=== PATIENT | male | born 1945 | race Caucasian/White ===

== ENCOUNTER 2020-03-26 12:05 | Emergency (ER) | payer MEDICARE, OTHER ==
[2020-03-26 12:18] VITALS: RESP 18
--- NOTE | 2020-03-26 12:46 | ED ---
General Adult HPI - General Chief complaint: Recheck/Abnormal Lab/Rx Stated complaint: Abn Labs Time Seen by Provider: 03/26/20 12:15 Source: patient, EMS Mode of arrival: EMS Limitations: no limitations - History of Present Illness Initial comments: Dictation was produced using [employer] dictation software. please excuse any grammatical, word or spelling errors. This patient was cared for during a federal and state declared state of emergency secondary to Covid 19 Chief Complaint: 74-year-old gentleman transferred from [facility] for abnormal outpatient labs History of Present Illness: 74-year-old male who has past medical history of acute kidney disease, myocardial infarction dyslipidemia. He is transferred from [facility] for abnormal labs. Patient had elevated renal markers. Patient had recent ureteral stent placement. He has a Barrera catheter in place. Patient states he feels well. He knows that he is here because his laboratory markers are worse than usual. Patient states he has a stent. He does not know which side the stent is on. He does not know why it's place. Allegedly the stent was placed at [facility] in [place], by a urologist. The ROS documented in this emergency department record has been reviewed and confirmed by me. Those systems with pertinent positive or negative responses have been documented in the HPI. All other systems are other negative and/or noncontributory. PHYSICAL EXAM: General Impression: Alert and oriented x3, not in acute distress HEENT: Normocephalic atraumatic, extra-ocular movements intact, pupils equal and reactive to light bilaterally, mucous membranes moist. Cardiovascular: Heart regular rate and rhythm Chest: Able to complete full sentences, no retractions, no tachypnea Abdomen: abdomen soft, non-tender, non-distended, no organomegaly Musculoskeletal: Pulses present and equal in all extremities, no peripheral edema Motor: no focal deficits noted : No groin changes, folic catheter in place, clear urine and Barrera catheter re servoir and tubing Neurological: CN II-XII grossly intact, no focal motor or sensory deficits noted Skin: Intact with no visualized rashes Psych: Normal affect and mood ED course: 74-year-old male presents with abnormal outpatient labs. Patient has been having worsening renal function. Chest her documentation shows that patient's creatinine is 3 vital signs upon arrival shows temperature 90.2, rest of vital signs within acceptable limits. More history was obtained from Dr. Long who is the physician at the rehab facility. He states that patient has complex neurologic history. He has had m ultiple workups including test done by urology, nephrology in interventional radiology. He does not have the exact details of his workup and he does not know which hospital patient came from. He is concerned that patient's renal markers are increasing. He is concerned that he is having worsening obstructive uropathy.Bladder scan showed 57 mL of urine. Laboratory evaluation obtained. CBC is unremarkable. Patient does have a hemoglobin of 8.8. This seems to be his baseline. reatining is 3.58. Potassium 5.4 likely secondary to acute kidney injury. There is old EKG for comparison however there is an QRS with left bundle branch block. Unclear whether this is new or old. She continues to be asymptomatic. Patient's hyperkalemia is chronic. Patient given intravenous fluids. Patient is greater than 182 white blood cells. Patient given 1 dose of ceftriaxone. Patient be transferred to [facility] case was discussed with Dr Sotomayor was willing to accept patients care for urinary ER transfer. EKG interpretation: Ventricular rate 63, normal sinus rhythm, WA interval 140, QRS 152, QTC 493. No WA prolongation, no QTC prolongation, no ST or T-wave changes noted. No old EKG for comparison - Related Data Home Medications Medication Instructions Recorded Confirmed Atorvastatin [Lipitor] 40 mg PO HS 03/26/20 03/26/20 Cholecalciferol [Vitamin D3 (25 1,000 unit PO DAILY 03/26/20 03/26/20 Mcg = 1000 Iu)] Docusate [Colace] 100 mg PO DAILY PRN 03/26/20 03/26/20 Escitalopram [Lexapro] 10 mg PO DAILY 03/26/20 03/26/20 Hydrocortisone [Cortef] 5 mg PO HS 03/26/20 03/26/20 Hydrocortisone [Cortef] 10 mg PO DAILY 03/26/20 03/26/20 Magnesium Oxide [Mag-Ox] 400 mg PO DAILY 03/26/20 03/26/20 Magnesium Sulfate [Epsom Salt] 1 dose TOPICAL HS 03/26/20 03/26/20 Metoprolol Succinate (ER) [Toprol 25 mg PO DAILY 08/13/20 08/13/20 Xl] Midodrine HCl 5 mg PO TID@0800,1130,1630 03/26/20 03/26/20 Nitroglycerin Sl Tabs [Nitrostat] 0.4 mg SUBLINGUAL Q5M PRN 03/26/20 03/26/20 Pantoprazole [Protonix] 40 mg PO DAILY@0600 03/26/20 03/26/20 Polyethylene Glycol 3350 [Miralax] 17 gm PO DAILY PRN 03/26/20 03/26/20 Propylene Glycol/Peg 400/Pf 2 drops BOTH EYES TID PRN 03/26/20 03/26/20 [Systane 0.3-0.4% Eye Drops] Tamsulosin HCl [Flomax] 0.4 mg PO DAILY 03/26/20 03/26/20 Allergies Allergy/AdvReac Type Severity Reaction Status Date / Time No Known Allergies Allergy Verified 03/26/20 12:19 Review of Systems ROS Statement: Those systems with pertinent positive or pertinent negative responses have been documented in the HPI. ROS Other: All systems not noted in ROS Statement are negative. Past Medical History Past Medical History: GERD/Reflux, Hyperlipidemia, Myocardial Infarction ([place]), Renal Disease Additional Past Medical History / Comment(s): anemia,hydronephrosis,carbon monoxide poisioning Past Surgical History: Heart Catheterization With Stent, Orthopedic Surgery Additional Past Surgical History / Comment(s): stent to left kidney Past Psychological History: Anxiety, Depression Smoking Status: Former smoker Past Alcohol Use History: None Reported Past Drug Use History: None Reported General Exam Limitations: no limitations Course Vital Signs 03/26/20 12:07 Temperature 99.2 F Pulse Rate 65 Respiratory 18 Rate Blood Pressure 119/75 O2 Sat by Pulse 98 Oximetry Medical Decision Making - Lab Data Result diagrams: 03/26/20 12:33 03/26/20 12:33 Lab Results 03/26/20 03/26/20 03/26/20 Range/Units 12:33 12:33 12:33 WBC 6.2 (3.8-10.6) k/uL RBC 2.95 L (4.30-5.90) m/uL Hgb 8.8 L (13.0-17.5) gm/dL Hct 28.2 L (39.0-53.0) % MCV 95.6 (80.0-100.0) fL MCH 29.8 (25.0-35.0) pg MCHC 31.2 (31.0-37.0) g/dL RDW 15.4 (11.5-15.5) % Plt Count 339 (150-450) k/uL Neutrophils % 75 % Lymphocytes % 12 % Monocytes % 5 % Eosinophils % 4 % Basophils % 0 % Neutrophils # 4.7 (1.3-7.7) k/uL Lymphocytes # 0.7 L (1.0-4.8) k/uL Monocytes # 0.3 (0-1.0) k/uL Eosinophils # 0.3 (0-0.7) k/uL Basophils # 0.0 (0-0.2) k/uL Hypochromasia Slight Sodium 136 L (137-145) mmol/L Potassium 5.4 H (3.5-5.1) mmol/L Chloride 108 H (98-107) mmol/L Carbon Dioxide 22 (22-30) mmol/L Anion Gap 6 mmol/L BUN 74 H (9-20) mg/dL Creatinine 3.58 H (0.66-1.25) mg/dL Est GFR (CKD-EPI)AfAm 18 (>60 ml/min/1.73 sqM) Est GFR (CKD-EPI)NonAf 16 (>60 ml/min/1.73 sqM) Glucose 115 H (74-99) mg/dL Calcium 8.3 L (8.4-10.2) mg/dL Urine Color Light Yellow Urine Appearance Cloudy (Clear) Urine pH 6.5 (5.0-8.0) Ur Specific [place] 1.014 (1.001-1.035) Urine Protein 1+ H (Negative) Urine Glucose (UA) Negative (Negative) Urine Ketones Negative (Negative) Urine Blood Moderate H (Negative) Urine Nitrite Negative (Negative) Urine Bilirubin Negative (Negative) Urine Urobilinogen <2.0 (<2.0) mg/dL Ur Leukocyte Esterase Large H (Negative) Urine RBC 72 H (0-5) /hpf Urine WBC >182 H (0-5) /hpf Urine WBC Clumps Many H (None) /hpf Urine Bacteria Occasional H (None) /hpf Disposition Clinical Impression: HERSON (acute kidney injury) Disposition: OTHER INSTITUTION NOT DEFINED Condition: Fair Referrals: Orestes Long MD [Primary Care Provider] - 1-2 days Time of Disposition: 13:26 - Out of Hospital Transfer - Req. Specs Out of Hospital Transfer - Requested Specifics: Other Emergency Center ([facility])
[2020-03-26 12:57] LABS: Basophils % (A) 0 %; Eosinophils # (A) 0.3 k/uL (0-0.7); Eosinophils % (A) 4 %; HCT 28.2 % (39.0-53.0); HGB 8.8 gm/dL (13.0-17.5); Hypochromasia Slight; Lymphocytes # (A) 0.7 k/uL (1.0-4.8); Lymphocytes % (A) 12 %; MCH 29.8 pg (25.0-35.0); MCHC 31.2 g/dL (31.0-37.0); MCV 95.6 fL (80.0-100.0); Mean Platelet Volume 8.2; Monocytes # (A) 0.3 k/uL (0-1.0); Monocytes % (A) 5 %; Neutrophils # (A) 4.7 k/uL (1.3-7.7); Neutrophils % (A) 75 %; Platelet Count 339 k/uL (150-450); RBC 2.95 m/uL (4.30-5.90); RDW 15.4 % (11.5-15.5); WBC 6.2 k/uL (3.8-10.6)
[2020-03-26 13:07] LABS: Calcium 8.3 mg/dL (8.4-10.2); Potassium 5.4 mmol/L (3.5-5.1)
[2020-03-26] MEDS ORDERED: SODIUM CHLORIDE 0.9% 1,000 ML IV STA (13:07)
[2020-03-26 13:19] LABS: Appearance,Urine Cloudy (Clear); Bacteria,Urine Occasional /hpf; Bilirubin,Urine Negative (Negative); Blood,Urine Moderate (Negative); Color,Urine Light Yellow; Glucose,Urine (UA) Negative (Negative); Ketones,Urine Negative (Negative); Leukocyte Esterase,Urine Large (Negative); Nitrite,Urine Negative (Negative); PH, Urine 6.5 (5.0-8.0); Protein,Urine 1+ (Negative); RBC,Urine 72 /hpf (0-5); Specific Gravity,Urine 1.014 (1.001-1.035); Urobilinogen,Urine <2.0 mg/dL (<2.0); WBC,Urine >182 /hpf (0-5)
[2020-03-26] MEDS ORDERED: cefTRIAXone IN SWFI 1,000 MG/10 ML SYRINGE IVP STA (13:25)
[2020-03-26 14:18] VITALS: BP 115/72; PULSE 68; TEMP 98.8
== END 2020-03-26 14:18 | disposition other institution (70) ==
LOC: EC 12:05
DX: N17.9 Acute kidney failure, unspecified (principal); I44.7 Left bundle-branch block, unspecified; E87.5 Hyperkalemia; I25.2 Old myocardial infarction; F41.9 Anxiety disorder, unspecified; F32.9 Major depressive disorder, single episode, unspecified; K21.9 Gastro-esophageal reflux disease without esophagitis; E78.5 Hyperlipidemia, unspecified; Z79.899 Other long term (current) drug therapy; Z87.891 Personal history of nicotine dependence; Z95.5 Presence of coronary angioplasty implant and graft
CPT/HCPCS: 51798; 36415; 93005; 80048; 85025; 81001; 99285; 96374; 96361; J0696

== ENCOUNTER 2020-05-26 02:58 | Inpatient (IN) | payer MEDICARE, OTHER ==
[2020-05-26] MEDS ORDERED: ACETAMINOPHEN TAB 500 MG TAB PO STA (03:06)
--- NOTE | 2020-05-26 03:07 | ED ---
Fever HPI - General Stated Complaint: fever Time Seen by Provider: 05/26/20 03:01 Source: RN notes reviewed, old records reviewed Mode of arrival: EMS Limitations: no limitations - History of Present Illness Initial Comments: This is a 75-year-old male DF for evaluation of fever with known history of urinary tract infection, patient sent DF for evaluation of persistent fever, p atient is weak occasionally lightheaded and dizzy. History of [place] and kidney disease MD Complaint: fever, malaise -: days(s) Temperature Source: subjective Context: recent antibiotic use Associated Symptoms: chills, myalgias, nausea Treatments Prior to Arrival: none - Related Data Home Medications Medication Instructions Recorded Confirmed Atorvastatin [Lipitor] 40 mg PO HS 03/26/20 03/26/20 Cholecalciferol [Vitamin D3 (25 1,000 unit PO DAILY 03/26/20 03/26/20 Mcg = 1000 Iu)] Docusate [Colace] 100 mg PO DAILY PRN 03/26/20 03/26/20 Escitalopram [Lexapro] 10 mg PO DAILY 03/26/20 03/26/20 Hydrocortisone [Cortef] 5 mg PO HS 03/26/20 03/26/20 Hydrocortisone [Cortef] 10 mg PO DAILY 03/26/20 03/26/20 Magnesium Oxide [Mag-Ox] 400 mg PO DAILY 03/26/20 03/26/20 Magnesium Sulfate [Epsom Salt] 1 dose TOPICAL HS 03/26/20 03/26/20 Metoprolol Succinate (ER) [Toprol 25 mg PO DAILY 03/26/20 03/26/20 Xl] Midodrine HCl 5 mg PO TID@0800,1130,1630 03/26/20 03/26/20 Nitroglycerin Sl Tabs [Nitrostat] 0.4 mg SUBLINGUAL Q5M PRN 03/26/20 03/26/20 Pantoprazole [Protonix] 40 mg PO DAILY@0600 03/26/20 03/26/20 Polyethylene Glycol 3350 [Miralax] 17 gm PO DAILY PRN 03/26/20 03/26/20 Propylene Glycol/Peg 400/Pf 2 drops BOTH EYES TID PRN 03/26/20 03/26/20 [Systane 0.3-0.4% Eye Drops] Tamsulosin HCl [Flomax] 0.4 mg PO DAILY 03/26/20 03/26/20 Allergies Allergy/AdvReac Type Severity Reaction Status Date / Time No Known Allergies Allergy Verified 03/26/20 12:19 Review of Systems ROS Statement: Those systems with pertinent positive or pertinent negative responses have been documented in the HPI. ROS Other: All systems not noted in ROS Statement are negative. Past Medical History Past Medical History: GERD/Reflux, Hyperlipidemia, Myocardial Infarction ([place]), Renal Disease Additional Past Medical History / Comment(s): anemia,hydronephrosis,carbon monoxide poisioning History of Any Multi-Drug Resistant Organisms: Acinetobacter (MDRO) Date of last positivie culture/infection: 04/25/20 MDRO Source:: URINE Past Surgical History: Heart Catheterization With Stent, Orthopedic Surgery Additional Past Surgical History / Comment(s): stent to left kidney Past Psychological History: Anxiety, Depression Smoking Status: Former smoker Past Alcohol Use History: None Reported Past Drug Use History: None Reported General Exam General appearance: alert, in no apparent distress Head exam: Present: atraumatic, normocephalic, normal inspection Eye exam: Present: normal appearance, PERRL, EOMI. Absent: scleral icterus, conjunctival injection, periorbital swelling ENT exam: Present: normal exam, mucous membranes moist Neck exam: Present: normal inspection. Absent: tenderness, meningismus, lymphadenopathy Respiratory exam: Present: normal lung sounds bilaterally. Absent: respiratory distress, wheezes, rales, rhonchi, stridor Cardiovascular Exam: Present: regular rate, normal rhythm, normal heart sounds. Absent: systolic murmur, diastolic murmur, rubs, gallop, clicks GI/Abdominal exam: Present: soft, normal bowel sounds. Absent: distended, tenderness, guarding, rebound, rigid Extremities exam: Present: normal inspection, full ROM, normal capillary refill. Absent: tenderness, pedal edema, joint swelling, calf tenderness Back exam: Present: normal inspection Neurological exam: Present: alert, oriented X3, CN II-XII intact Psychiatric exam: Present: normal affect, normal mood Skin exam: Present: warm, dry, intact, normal color. Absent: rash Course Vital Signs 05/26/20 05/26/20 02:59 04:00 Temperature 98.7 F 99.4 F Pulse Rate 67 64 Respiratory 16 18 Rate Blood Pressure 115/65 107/61 O2 Sat by Pulse 97 97 Oximetry - Reevaluation(s) Reevaluation #1: 05/26/20 04:19 Medical records reviewed Reevaluation #2: 05/26/20 04:19 Symptomatic improvement here in the ER Reevaluation #3: 05/26/20 04:19 Spoke with patient regarding findings, questions answered - Consultations Consultation #1: EMS to agrees to admit this patient Medical Decision Making - Medical Decision Making 75 male DF for evaluation positive fever of unknown origin, patient be admitted rule out coronavirus rule out cause of sepsis ration does apparently have urinary tract infection as well - Lab Data Result diagrams: 05/26/20 03:21 05/26/20 03:21 Lab Results 05/26/20 05/26/20 05/26/20 Range/Units 03:21 03:21 03:21 WBC 20.8 H (3.8-10.6) k/uL RBC 3.10 L (4.30-5.90) m/uL Hgb 10.1 L (13.0-17.5) gm/dL Hct 32.1 L (39.0-53.0) % MCV 103.4 H (80.0-100.0) fL MCH 32.5 (25.0-35.0) pg MCHC 31.5 (31.0-37.0) g/dL RDW 15.3 (11.5-15.5) % Plt Count 263 (150-450) k/uL Neutrophils % 88 % Lymphocytes % 4 % Monocytes % 6 % Eosinophils % 0 % Basophils % 0 % Neutrophils # 18.3 H (1.3-7.7) k/uL Lymphocytes # 0.8 L (1.0-4.8) k/uL Monocytes # 1.3 H (0-1.0) k/uL Eosinophils # 0.0 (0-0.7) k/uL Basophils # 0.0 (0-0.2) k/uL Macrocytosis Slight PT 10.6 (9.0-12.0) sec INR 1.0 (<1.2) APTT 24.1 (22.0-30.0) sec Sodium 138 (137-145) mmol/L Potassium 4.2 (3.5-5.1) mmol/L Chloride 106 (98-107) mmol/L Carbon Dioxide 23 (22-30) mmol/L Anion Gap 9 mmol/L BUN 75 H (9-20) mg/dL Creatinine 4.02 H (0.66-1.25) mg/dL Est GFR (CKD-EPI)AfAm 16 (>60 ml/min/1.73 sqM) Est GFR (CKD-EPI)NonAf 14 (>60 ml/min/1.73 sqM) Glucose 156 H (74-99) mg/dL Plasma Lactic Acid Stanton (0.7-2.0) mmol/L Calcium 8.7 (8.4-10.2) mg/dL Magnesium 1.5 L (1.6-2.3) mg/dL Total Bilirubin 0.5 (0.2-1.3) mg/dL AST 41 (17-59) U/L ALT 60 H (4-49) U/L Alkaline Phosphatase 76 (38-126) U/L Lactate Dehydrogenase 419 (313-618) U/L C-Reactive Protein 28.4 H (<10.0) mg/L Total Protein 6.0 L (6.3-8.2) g/dL Albumin 3.6 (3.5-5.0) g/dL 05/26/20 Range/Units 03:21 WBC (3.8-10.6) k/uL RBC (4.30-5.90) m/uL Hgb (13.0-17.5) gm/dL Hct (39.0-53.0) % MCV (80.0-100.0) fL MCH (25.0-35.0) pg MCHC (31.0-37.0) g/dL RDW (11.5-15.5) % Plt Count (150-450) k/uL Neutrophils % % Lymphocytes % % Monocytes % % Eosinophils % % Basophils % % Neutrophils # (1.3-7.7) k/uL Lymphocytes # (1.0-4.8) k/uL Monocytes # (0-1.0) k/uL Eosinophils # (0-0.7) k/uL Basophils # (0-0.2) k/uL Macrocytosis PT (9.0-12.0) sec INR (<1.2) APTT (22.0-30.0) sec Sodium (137-145) mmol/L Potassium (3.5-5.1) mmol/L Chloride (98-107) mmol/L Carbon Dioxide (22-30) mmol/L Anion Gap mmol/L BUN (9-20) mg/dL Creatinine (0.66-1.25) mg/dL Est GFR (CKD-EPI)AfAm (>60 ml/min/1.73 sqM) Est GFR (CKD-EPI)NonAf (>60 ml/min/1.73 sqM) Glucose (74-99) mg/dL Plasma Lactic Acid Stanton 1.1 (0.7-2.0) mmol/L Calcium (8.4-10.2) mg/dL Magnesium (1.6-2.3) mg/dL Total Bilirubin (0.2-1.3) mg/dL AST (17-59) U/L ALT (4-49) U/L Alkaline Phosphatase (38-126) U/L Lactate Dehydrogenase (313-618) U/L C-Reactive Protein (<10.0) mg/L Total Protein (6.3-8.2) g/dL Albumin (3.5-5.0) g/dL - EKG Data -: EKG Interpreted by Me (EKG shows sinus rhythm 68 WI 146 QRS 152 QTC 523) Disposition Clinical Impression: Fever, Viral infection, Fever of unknown origin, Sepsis, UTI (urinary tract infection) Disposition: ADMITTED IP TO THIS HOSP Condition: Fair Is patient prescribed a controlled substance at d/c from ED?: No Referrals: Orestes Long MD [Primary Care Provider] - 1-2 days
[2020-05-26 03:29] LABS: Basophils % (A) 0 %; Eosinophils % (A) 0 %; HCT 32.1 % (39.0-53.0); HGB 10.1 gm/dL (13.0-17.5); Lymphocytes # (A) 0.8 k/uL (1.0-4.8); Lymphocytes % (A) 4 %; MCH 32.5 pg (25.0-35.0); MCHC 31.5 g/dL (31.0-37.0); MCV 103.4 fL (80.0-100.0); Macrocytosis Slight; Mean Platelet Volume 8.8; Monocytes # (A) 1.3 k/uL (0-1.0); Monocytes % (A) 6 %; Neutrophils # (A) 18.3 k/uL (1.3-7.7); Neutrophils % (A) 88 %; Platelet Count 263 k/uL (150-450); RDW 15.3 % (11.5-15.5); WBC 20.8 k/uL (3.8-10.6)
[2020-05-26 03:45] LABS: Albumin 3.6 g/dL (3.5-5.0); C Reactive Protein 28.4 mg/L (<10.0); Calcium 8.7 mg/dL (8.4-10.2); Magnesium 1.5 mg/dL (1.6-2.3); Potassium 4.2 mmol/L (3.5-5.1); Total Bilirubin 0.5 mg/dL (0.2-1.3)
[2020-05-26 03:46] LABS: Partial Thromboplastin Time 24.1 sec (22.0-30.0); Prothrombin Time 10.6 sec (9.0-12.0)
--- NOTE | 2020-05-26 04:02 | XR ---
EXAM: XR Chest, 1 View CLINICAL HISTORY: Suspected COVID-19 pneumonia TECHNIQUE: Frontal view of the chest. COMPARISON: No relevant prior studies available. FINDINGS: Lungs: Unremarkable. No acute infiltration, atelectasis or mass. Pleural space: Unremarkable. No pneumothorax or pleural fluid. Heart: Unremarkable. No cardiomegaly. Mediastinum: Unremarkable. Bones/joints: No acute findings. IMPRESSION: No evidence of acute process in the chest by x-ray.
[2020-05-26] MEDS ORDERED: PIPERACILLIN-TAZOBACTAM 3.375 GM in SODIUM CHLORIDE 0.9% 100 ML IVPB STA (04:17)
[2020-05-26] MEDS: SODIUM CHLORIDE 0.9% 500 ML 500 ML IV SCH ×3 (04:38→06:27)
[2020-05-26] MEDS: SODIUM CHLORIDE 0.9% 1,000 ML IV SCH ×3 (05:32→20:40)
[2020-05-26] MEDS ORDERED: ENOXAPARIN 40 MG/0.4 ML SYRINGE SQ SCH (09:00)
[2020-05-26 09:31] LABS: Ferritin 397.5 ng/mL (22.0-322.0)
[2020-05-26] MEDS ORDERED: PIPERACILLIN-TAZOBACTAM 3.375 GM in SODIUM CHLORIDE 0.9% 100 ML IVPB SCH (13:00)
[2020-05-26] MEDS ORDERED: DOCUSATE 100 MG CAP PO PRN (14:13)
[2020-05-26] MEDS ORDERED: NITROGLYCERIN SL TABS 0.4 MG TAB SUBLINGUAL PRN (14:13)
[2020-05-26] MEDS ORDERED: polyethylene glycoL 3350 17 GM POWD.PACK PO PRN (14:13)
[2020-05-26] MEDS ORDERED: FAMOTIDINE 20 MG TAB PO SCH (14:15)
--- NOTE | 2020-05-26 14:27 | P.HPIM ---
History of Present Illness 75-year-old male with a chronic Bartholomew catheter which was replaced 3 days ago after multiple attempts came in because of fever and generalized weakness. Patient was believed to have urinary tract infection unfortunately. I do not richardson ve any available which was ordered and urine cultures were ordered as well. Patient already received Zosyn by the time and D and urine cultures. Patient was having low-grade fevers yesterdaydenied any suprapubic pain. Patient was having some chronic cough or chest x-ray did not show any pneumonia. Patient was started on Zosyn. patient had UTIs in the past the last culture) from me about any ago showed Klebsiella pneumonia which is sensitive to most antibiotics. covid 19 testing was ordered as well. Patient does have chronic kidney disease patient creatinine is presently for patient had CKD 5and this creatinine is his baseline. Review of Systems REVIEW OF SYSTEMS: CONSTITUTIONAL: as mentioned in HPI HEENT: No recent visual problems or hearing problems. Denied any sore throat. CARDIOVASCULAR: No chest pain, orthopnea, PND, no palpitations, no syncope. PULMONARY: No shortness of breath, no hemoptysis. GASTROINTESTINAL: No diarrhea, no nausea, no vomiting, no abdominal pain. NEUROLOGICAL: No headaches, no weakness, no numbness. HEMATOLOGICAL: Denies any bleeding or petechiae. GENITOURINARY: Denies any burning micturition, frequency, or urgency. MUSCULOSKELETAL/RHEUMATOLOGICAL: Denies any joint pain, swelling, or any muscle pain. ENDOCRINE: Denies any polyuria or polydipsia. The rest of the 14-point review of systems is negative. Past Medical History Past Medical History: Coronary Artery Disease (CAD), Chest Pain / Angina, GERD/Reflux, Hyperlipidemia, Renal Disease Additional Past Medical History / Comment(s): CKD, hydronephrosis, hematuria, obstructive uropathy/reflux/chronic bartholomew, UTI, kidney stones, bacteremia with pyuria, BPH, normocytic anemia, hypomagnesemia, hypocalcemia, hyperkalemia, vitamin D deficiency, caratid artery stenosis/bruits, aortic stenosis, panlobular emphysema, past carbon monoxide poisoning, muscle weakness. History of Any Multi-Drug Resistant Organisms: Acinetobacter (MDRO) Date of last positivie culture/infection: 04/25/20 MDRO Source:: URINE Past Surgical History: Heart Catheterization With Stent Additional Past Surgical History / Comment(s): stent to left kidney Past Anesthesia/Blood Transfusion Reactions: No Reported Reaction Additional Past Anesthesia/Blood Transfusion Reaction / Comment(s): Pt has received blood in past without reaction Date of Last Stent Placement:: 2018 Smoking Status: Current every day smoker - Past Family History Father Family Medical History: Diabetes Mellitus, Myocardial Infarction ([place]) Additional Family Medical History / Comment(s): Father "just gave up on life" and at the age of 73 yrs. Mother Family Medical History: Myocardial Infarction ([place]) Additional Family Medical History / Comment(s): Mother is 95 yrs old. Medications and Allergies Home Medications Medication Instructions Recorded Confirmed Type Atorvastatin [Lipitor] 40 mg PO HS 03/26/20 05/26/20 History Cholecalciferol [Vitamin D3 (25 1,000 unit PO HS 03/26/20 05/26/20 History Mcg = 1000 Iu)] Docusate [Colace] 100 mg PO DAILY PRN 03/26/20 05/26/20 History Escitalopram [Lexapro] 10 mg PO DAILY 03/26/20 05/26/20 History Hydrocortisone [Cortef] 5 mg PO HS 03/26/20 05/26/20 History Hydrocortisone [Cortef] 10 mg PO DAILY 03/26/20 05/26/20 History Magnesium Oxide [Mag-Ox] 400 mg PO DAILY 03/26/20 05/26/20 History Metoprolol Succinate (ER) [Toprol 25 mg PO DAILY 03/26/20 05/26/20 History Xl] Midodrine HCl 5 mg PO TID@0900,1300,2100 03/26/20 05/26/20 History Nitroglycerin Sl Tabs [Nitrostat] 0.4 mg SUBLINGUAL Q5M PRN 03/26/20 05/26/20 History Polyethylene Glycol 3350 [Miralax] 17 gm PO DAILY PRN 03/26/20 05/26/20 History Tamsulosin HCl [Flomax] 0.4 mg PO DAILY 03/26/20 05/26/20 History Ciprofloxacin HCl [Cipro] 250 mg PO DAILY 05/26/20 05/26/20 History Clotrimazole Cream [Lotrimin Cream] 1 applic TOPICAL BID@0600,2200 05/26/20 05/26/20 History Dextran/Hypromellose/Glycerin 2 drop BOTH EYES TID@0900,1300,2100 05/26/20 05/26/20 History [Genteal Tears 0.1%-0.2%-0.3%] Famotidine [Pepcid] 20 mg PO Q48H 05/26/20 05/26/20 History Lactose-Reduced Food [Ensure Plus] 240 ml PO BID@0900,1700 05/26/20 05/26/20 History Sennosides/Docusate Sodium [Senna 2 tab PO BID@0900,2100 05/26/20 05/26/20 History Plus 8.6-50 mg Tablet] Allergies Allergy/AdvReac Type Severity Reaction Status Date / Time No Known Allergies Allergy Verified 05/26/20 06:56 Physical Exam Vitals: Vital Signs Temp Pulse Pulse Resp BP BP Pulse Ox 05/26/20 07:00 98.3 F 64 18 128/63 94 L 05/26/20 06:56 98.4 F 68 16 113/76 98 05/26/20 04:00 99.4 F 64 18 107/61 97 05/26/20 02:59 98.7 F 67 16 115/65 97 Intake and Output 05/25/20 05/26/20 05/26/20 22:59 06:59 14:59 Other: # Voids 500 Weight 61.235 kg 61.235 kg PHYSICAL EXAMINATION: GENERAL: The patient is alert and oriented x3, not in any acute distress. Well developed, well nourished. HEENT: Pupils are round and equally reacting to light. EOMI. No scleral icterus. No conjunctival pallor. Normocephalic, atraumatic. No pharyngeal erythema. No t hyromegaly. CARDIOVASCULAR: S1 and S2 present. No murmurs, rubs, or gallops. PULMONARY: Chest is clear to auscultation, no wheezing or crackles. ABDOMEN: Soft, nontender, nondistended, normoactive bowel sounds. No palpable organomegaly. MUSCULOSKELETAL: No joint swelling or deformity. EXTREMITIES: No cyanosis, clubbing, or pedal edema. NEUROLOGICAL: Gross neurological examination did not reveal any focal deficits. SKIN: No rashes. Results CBC & Chem 7: 05/26/20 03:21 05/26/20 03:21 Labs: Abnormal Lab Results - Last 24 Hours (Table) 05/26/20 05/26/20 Range/Units 03:21 03:21 WBC 20.8 H (3.8-10.6) k/uL RBC 3.10 L (4.30-5.90) m/uL Hgb 10.1 L (13.0-17.5) gm/dL Hct 32.1 L (39.0-53.0) % MCV 103.4 H (80.0-100.0) fL Neutrophils # 18.3 H (1.3-7.7) k/uL Lymphocytes # 0.8 L (1.0-4.8) k/uL Monocytes # 1.3 H (0-1.0) k/uL BUN 75 H (9-20) mg/dL Creatinine 4.02 H (0.66-1.25) mg/dL Glucose 156 H (74-99) mg/dL Magnesium 1.5 L (1.6-2.3) mg/dL Ferritin 397.5 H (22.0-322.0) ng/mL ALT 60 H (4-49) U/L C-Reactive Protein 28.4 H (<10.0) mg/L Total Protein 6.0 L (6.3-8.2) g/dL Thrombosis Risk Factor Assmnt - Choose All That Apply Any of the Below Risk Factors Present?: Yes Each Factor Represents 1 point: Sepsis (< 1month) Other Risk Factors: Yes Each Risk Factor Represents 3 Points: Age 75 years or older Other congenital or acquired thrombophilia - If yes, enter type in comment: No Thrombosis Risk Factor Assessment Total Risk Factor Score: 4 Thrombosis Risk Factor Assessment Level: Moderate Risk Assessment and Plan Plan: -sepsis: Probably secondary to urinary tract infection although Covid 19 will be ruled out possibly of which is low patient UTI secondary to chronic Bartholomew catheter which was replaced about 3 days ago. -Coronary artery disease Gastroesophageal disease -Hyperlipidemia -Hypertension -Obstructive uropathy chronic Bartholomew catheter history of previous UTIs kidney stones and bacteremia in the past -Chronic kidney disease stage V probably secondary to obstructive uropathy in the past -Coronary artery disease with previous stent -continued nicotine use: Counseling was provided Due to prophylaxis with heparin
[2020-05-26] MEDS: MAGNESIUM SULFATE-D5W PMX 1 GM in DEXTROSE/WATER 1 100ML.BAG IVPB SCH ×2 (16:56→18:02)
[2020-05-26] MEDS: FAMOTIDINE 20 MG TAB PO SCH (16:56)
[2020-05-26 17:21] LABS: Appearance,Urine Clear (Clear); Bacteria,Urine Occasional /hpf; Bilirubin,Urine Negative (Negative); Blood,Urine Trace (Negative); Color,Urine Light Yellow; Glucose,Urine (UA) Negative (Negative); Ketones,Urine Negative (Negative); Leukocyte Esterase,Urine Large (Negative); Mucus,Urine Rare /hpf; Nitrite,Urine Negative (Negative); PH, Urine 6.5 (5.0-8.0); Protein,Urine 1+ (Negative); RBC,Urine 5 /hpf (0-5); Specific Gravity,Urine 1.012 (1.001-1.035); Urobilinogen,Urine <2.0 mg/dL (<2.0); WBC,Urine 14 /hpf (0-5)
[2020-05-26] MEDS: HEPARIN SODIUM,PORCINE 5,000 UNIT/ML 1 ML VIAL SQ SCH (20:38)
[2020-05-26] MEDS: MIDODRINE 5 MG TAB PO SCH (20:39)
[2020-05-26] MEDS: ATORVASTATIN 40 MG TAB PO SCH (20:39)
[2020-05-26] MEDS: HYDROCORTISONE 10 MG TAB PO SCH (20:39)
[2020-05-26] MEDS: SENNOSIDES-DOCUSATE SODIUM 1 EACH TAB PO SCH (20:39)
[2020-05-26] MEDS: ARTIFICIAL TEARS-HYPROMELLOSE DROPS 15 ML BTL BOTH EYES SCH (20:44)
[2020-05-26] MEDS: CLOTRIMAZOLE 1% CREAM 15 GM TUBE TOPICAL SCH (20:45)
[2020-05-27] MEDS: PIPERACILLIN-TAZOBACTAM 3.375 GM in SODIUM CHLORIDE 0.9% 100 ML IVPB SCH ×2 (00:21→13:59)
[2020-05-27] MEDS: SODIUM CHLORIDE 0.9% 1,000 ML IV SCH ×2 (05:50→13:59)
[2020-05-27] MEDS: CLOTRIMAZOLE 1% CREAM 15 GM TUBE TOPICAL SCH ×2 (05:50→22:12)
[2020-05-27] MEDS: FAMOTIDINE 20 MG TAB PO SCH (08:32)
[2020-05-27] MEDS: SENNOSIDES-DOCUSATE SODIUM 1 EACH TAB PO SCH ×2 (08:32→22:12)
[2020-05-27] MEDS: MAGNESIUM OXIDE 400 MG TAB PO SCH (08:32)
[2020-05-27] MEDS: METOPROLOL SUCCINATE (ER) 25 MG TAB.ER.24H PO SCH (08:33)
[2020-05-27] MEDS: TAMSULOSIN 0.4 MG CAP.ER.24H PO SCH (08:33)
[2020-05-27] MEDS: MIDODRINE 5 MG TAB PO SCH ×3 (08:33→22:12)
[2020-05-27] MEDS: HEPARIN SODIUM,PORCINE 5,000 UNIT/ML 1 ML VIAL SQ SCH ×2 (08:33→22:11)
[2020-05-27] MEDS: HYDROCORTISONE 10 MG TAB PO SCH ×2 (08:33→22:13)
[2020-05-27] MEDS: ARTIFICIAL TEARS-HYPROMELLOSE DROPS 15 ML BTL BOTH EYES SCH ×3 (08:33→22:12)
[2020-05-27] MEDS: ESCITALOPRAM 10 MG TAB PO SCH (08:34)
[2020-05-27] MEDS ORDERED: ENOXAPARIN 30 MG/0.3 ML SYRINGE SQ SCH (09:00)
--- NOTE | 2020-05-27 09:21 | P.PN ---
Subjective 75-year-old male with a chronic Barrera catheter which was replaced 3 days ago after multiple attempts came in because of fever and generalized weakness. Patient was believed to have urinary tract infection unfortunately. I do not have any available which was ordered and urine cultures were ordered as well. Patient already received Zosyn by the time and D and urine cultures. Patient was having low-grade fevers yesterdaydenied any suprapubic pain. Patient was having some chronic cough or chest x-ray did not show any pneumonia. Patient was started on Zosyn. patient had UTIs in the past the last culture) from me about any ago showed Klebsiella pneumonia which is sensitive to most antibiotics. covid 19 testing was ordered as well. Patient does have chronic kidney disease patient creatinine is presently for patient had CKD 5and this cr eatinine is his baseline. 05/27/2020 Patient can use to be an antibiotics urine cultures are pending. Constitutional: Denied any fatigue denied any fever. Cardio vascular: denied any chest pain, palpitations Gastrointestinal denied any nausea vomitingpatient is complaining of some abdominal discomfort Pulmonary: Denied any shortness of breath cough Neurologic denied any new focal deficits All inpatient medications were reviewed and appropriate changes in these medications as dictated in the interval history and assessment and plan. Objective - Vital Signs Vital signs: Vital Signs Temp 98.2 F 05/27/20 07:00 Pulse 56 L 05/27/20 07:00 Resp 16 05/27/20 07:00 BP 150/69 05/27/20 07:00 Pulse Ox 92 L 05/27/20 07:00 Intake & Output 05/26/20 05/27/20 05/27/20 18:59 06:59 18:59 Output Total 1600 Balance -1600 Weight 61.235 kg Output: Urine 1600 Other: Voiding Method Indwelling Catheter # Voids 500 - Exam PHYSICAL EXAMINATION: GENERAL: The patient is alert and oriented x3, not in any acute distress. Well developed, well nourished. HEENT: Pupils are round and equally reacting to light. EOMI. No scleral icterus. No conjunctival pallor. Normocephalic, atraumatic. No pharyngeal erythema. No thyromegaly. CARDIOVASCULAR: S1 and S2 present. No murmurs, rubs, or gallops. PULMONARY: Chest is clear to auscultation, no wheezing or crackles. ABDOMEN: Soft, nontender, nondistended, normoactive bowel sounds. No palpable o rganomegaly. MUSCULOSKELETAL: No joint swelling or deformity. EXTREMITIES: No cyanosis, clubbing, or pedal edema. NEUROLOGICAL: Gross neurological examination did not reveal any focal deficits. SKIN: No rashes. - Labs CBC & Chem 7: 05/26/20 03:21 05/26/20 03:21 Labs: Abnormal Lab Results - Last 24 Hours (Table) 05/26/20 05/26/20 Range/Units 03:21 16:51 Ferritin 397.5 H (22.0-322.0) ng/mL Urine Protein 1+ H (Negative) Urine Blood Trace H (Negative) Ur Leukocyte Esterase Large H (Negative) Urine WBC 14 H (0-5) /hpf Urine Bacteria Occasional H (None) /hpf Urine Mucus Rare H (None) /hpf Microbiology - Last 24 Hours (Table) 05/26/20 03:21 Blood Culture - Preliminary Blood No Growth after 24 hours 05/26/20 16:51 Urine Culture - Preliminary Urine,Voided Assessment and Plan Plan: -sepsis: Probably secondary to urinary tract infection although Covid 19 was ruled out possibly of which is low patient UTI secondary to chronic Barrera catheter which was replaced about 3 days ago.urine cultures are pending. Urine analysis is abnormal. -Ruled out Covid 19 -Coronary artery disease Gastroesophageal disease -Hyperlipidemia -Hypertension -Obstructive uropathy chronic Barrera catheter history of previous UTIs kidney stones and bacteremia in the past -Chronic kidney disease stage V probably secondary to obstructive uropathy in the past -Coronary artery disease with previous stent -continued nicotine use: Counseling was provided Due to prophylaxis with heparin
[2020-05-27] MEDS: ATORVASTATIN 40 MG TAB PO SCH (22:12)
[2020-05-28] MEDS: PIPERACILLIN-TAZOBACTAM 3.375 GM in SODIUM CHLORIDE 0.9% 100 ML IVPB SCH (00:05)
[2020-05-28] MEDS: SODIUM CHLORIDE 0.9% 1,000 ML IV SCH ×2 (00:09→13:54)
[2020-05-28] MEDS: CLOTRIMAZOLE 1% CREAM 15 GM TUBE TOPICAL SCH (05:51)
[2020-05-28 07:01] LABS: HCT 31.9 % (39.0-53.0); HGB 9.8 gm/dL (13.0-17.5); Hypochromasia Slight; MCH 32.2 pg (25.0-35.0); MCHC 30.7 g/dL (31.0-37.0); MCV 104.8 fL (80.0-100.0); Macrocytosis Moderate; Mean Platelet Volume 8.6; Platelet Count 244 k/uL (150-450); RBC 3.05 m/uL (4.30-5.90); RDW 15.1 % (11.5-15.5); WBC 9.4 k/uL (3.8-10.6)
[2020-05-28] MEDS: FAMOTIDINE 20 MG TAB PO SCH (08:00)
[2020-05-28] MEDS: MAGNESIUM OXIDE 400 MG TAB PO SCH (08:01)
[2020-05-28] MEDS: TAMSULOSIN 0.4 MG CAP.ER.24H PO SCH (08:01)
[2020-05-28] MEDS: METOPROLOL SUCCINATE (ER) 25 MG TAB.ER.24H PO SCH (08:01)
[2020-05-28] MEDS: HEPARIN SODIUM,PORCINE 5,000 UNIT/ML 1 ML VIAL SQ SCH (08:01)
[2020-05-28] MEDS: SENNOSIDES-DOCUSATE SODIUM 1 EACH TAB PO SCH (08:01)
[2020-05-28] MEDS: MIDODRINE 5 MG TAB PO SCH ×2 (08:01→16:10)
[2020-05-28] MEDS: HYDROCORTISONE 10 MG TAB PO SCH (08:07)
[2020-05-28] MEDS: ARTIFICIAL TEARS-HYPROMELLOSE DROPS 15 ML BTL BOTH EYES SCH (08:08)
[2020-05-28] MEDS: ESCITALOPRAM 10 MG TAB PO SCH (08:08)
--- NOTE | 2020-05-28 08:56 | P.CONS ---
History of Present Illness - Reason for Consult Consult date: 05/27/20 Urinary tract infection Requesting physician: Gilson Alaniz - Chief Complaint Weakness and no energy x few days - History of Present Illness Patient is a 75 year male with a past medical history significant for recurrent urinary tract infection in this patient who has been sent to the ER for persistent fever and concern for urinary tract infection the patient be complaining of feeling weak and lightheaded and dizzy, on arrival to the ER the patient did have low-grade fever of 99.7 the patient did have elevated white count of 20.8 patient also noticed to have elevated creatinine of 4.02 liver enzymes are normal CRP elevated, patient did have a positive urine with large leukocyte esterase, pham PCR negative, patient did have a recent urine culture done on May 18 which was positive for Klebsiella patient has been started on Zosyn has been admitted to the hospital infectious disease was consulted for further management of antibiotic therapy, patient has some evolution is complaining of feeling weak and tired and no energy some nausea but no vomiting and denies having any chest pain or shortness of cough no abdominal pain no diarrhea Review of Systems Positive point has been mentioned in the HPI rest of the systems are negative Past Medical History Past Medical History: Coronary Artery Disease (CAD), Chest Pain / Angina, GERD/Reflux, Hyperlipidemia, Renal Disease Additional Past Medical History / Comment(s): CKD, hydronephrosis, hematuria, obstructive uropathy/reflux/chronic bartholomew, UTI, kidney stones, bacteremia with pyuria, BPH, normocytic anemia, hypomagnesemia, hypocalcemia, hyperkalemia, vitamin D deficiency, caratid artery stenosis/bruits, aortic stenosis, panlobular emphysema, past carbon monoxide poisoning, muscle weakness. History of Any Multi-Drug Resistant Organisms: Acinetobacter (MDRO) Year Discovered:: 04/25/20 MDRO Source:: URINE Past Surgical History: Heart Catheterization With Stent Additional Past Surgical History / Comment(s): stent to left kidney Past Anesthesia/Blood Transfusion Reactions: No Reported Reaction Additional Past Anesthesia/Blood Transfusion Reaction / Comm: Pt has received blood in past without reaction Date of Last Stent Placement:: 2018 Smoking Status: Current every day smoker - Past Family History Father Family Medical History: Diabetes Mellitus, Myocardial Infarction (VT) Additional Family Medical History / Comment(s): Father "just gave up on life" and at the age of 73 yrs. Mother Family Medical History: Myocardial Infarction (VT) Additional Family Medical History / Comment(s): Mother is 95 yrs old. Medications and Allergies Home Medications Medication Instructions Recorded Confirmed Type Atorvastatin [Lipitor] 40 mg PO HS 03/26/20 05/26/20 History Cholecalciferol [Vitamin D3 (25 1,000 unit PO HS 03/26/20 05/26/20 History Mcg = 1000 Iu)] Docusate [Colace] 100 mg PO DAILY PRN 03/26/20 05/26/20 History Escitalopram [Lexapro] 10 mg PO DAILY 03/26/20 05/26/20 History Hydrocortisone [Cortef] 5 mg PO HS 03/26/20 05/26/20 History Hydrocortisone [Cortef] 10 mg PO DAILY 03/26/20 05/26/20 History Magnesium Oxide [Mag-Ox] 400 mg PO DAILY 03/26/20 05/26/20 History Metoprolol Succinate (ER) [Toprol 25 mg PO DAILY 03/26/20 05/26/20 History Xl] Midodrine HCl 5 mg PO TID@0900,1300,2100 03/26/20 05/26/20 History Nitroglycerin Sl Tabs [Nitrostat] 0.4 mg SUBLINGUAL Q5M PRN 03/26/20 05/26/20 History Polyethylene Glycol 3350 [Miralax] 17 gm PO DAILY PRN 03/26/20 05/26/20 History Tamsulosin HCl [Flomax] 0.4 mg PO DAILY 03/26/20 05/26/20 History Ciprofloxacin HCl [Cipro] 250 mg PO DAILY 05/26/20 05/26/20 History Clotrimazole Cream [Lotrimin Cream] 1 applic TOPICAL BID@0600,2200 05/26/20 05/26/20 History Dextran/Hypromellose/Glycerin 2 drop BOTH EYES TID@0900,1300,2100 05/26/20 05/26/20 History [Genteal Tears 0.1%-0.2%-0.3%] Famotidine [Pepcid] 20 mg PO Q48H 05/26/20 05/26/20 History Lactose-Reduced Food [Ensure Plus] 240 ml PO BID@0900,1700 05/26/20 05/26/20 History Sennosides/Docusate Sodium [Senna 2 tab PO BID@0900,2100 05/26/20 05/26/20 History Plus 8.6-50 mg Tablet] Allergies Allergy/AdvReac Type Severity Reaction Status Date / Time No Known Allergies Allergy Verified 05/26/20 06:56 Physical Exam Vitals: Vital Signs Temp Pulse Resp BP Pulse Ox 05/27/20 08:36 56 L 16 05/27/20 07:00 98.2 F 56 L 16 150/69 92 L 05/27/20 00:45 99.1 F 66 18 148/68 99 05/26/20 20:39 98.7 F 63 16 144/64 93 L 05/26/20 15:45 61 17 05/26/20 15:34 98.1 F 61 17 137/55 95 Intake and Output 05/26/20 05/27/20 05/27/20 22:59 06:59 14:59 Intake Total 800 Output Total 300 1300 Balance -300 -1300 800 Intake: Intake, IV Titration 800 Amount Piperacillin-Tazobactam 3 100 .375 gm In Sodium Chloride 0.9% 100 ml @ 25 mls/hr IVPB Q12H [facility] Rx# :[id number] Sodium Chloride 0.9% 1, 700 000 ml @ 100 mls/hr IV . Q10H [facility] Rx#:[id number] Output: Urine 300 1300 Other: Voiding Method Indwelling Catheter Indwelling Catheter Indwelling Catheter GENERAL DESCRIPTION: Elderly male lying in bed, no distress. No tachypnea or accessory muscle of respiration use. HEENT: Shows Pallor , no scleral icterus. Oral mucous membrane is dry. No pharyngeal erythema or thrush NECK: Trachea central, no thyromegaly. LUNGS: Unlabored breathing. Decreased present at the base No wheeze or crackle. HEART: S1, S2, regular rate and rhythm. No loud murmur ABDOMEN: Soft, no tenderness , guarding or rigidity, no organomegaly EXTREMITIES: No edema of feet. SKIN: No rash, no masses palpable. NEUROLOGICAL: The patient is awake, alert, oriented x3, mood and affect normal. Results CBC & Chem 7: 05/28/20 06:36 05/26/20 03:21 Labs: Abnormal Lab Results - Last 24 Hours (Table) 10/13/20 Range/Units 16:51 Urine Protein 1+ H (Negative) Urine Blood Trace H (Negative) Ur Leukocyte Esterase Large H (Negative) Urine WBC 14 H (0-5) /hpf Urine Bacteria Occasional H (None) /hpf Urine Mucus Rare H (None) /hpf Microbiology - Last 24 Hours (Table) 05/26/20 03:21 Blood Culture - Preliminary Blood No Growth after 24 hours 05/26/20 16:51 Urine Culture - Preliminary Urine,Voided Assessment and Plan Assessment: 1- patient is a 75-year-old male with a past medical history sign ificant for recurrent urinary tract infection recently culture done on May 18 for positive for Klebsiella patient not clear which is an antibiotic he received for the same apparently did not have any improvement in his symptom any fever has has been admitted to the hospital for IV antibiotic therapy (1) UTI (urinary tract infection) Current Visit: Yes Status: Acute Code(s): N39.0 - URINARY TRACT INFECTION, SITE NOT SPECIFIED SNOMED Code(s): 92419857 Plan: 1- discontinue Zosyn 2-start the patient Rocephin 1 g daily 3-check ultrasound of the kidney and bladder area to rule out obstructive uropathy We will follow on clinical condition and cultures to further adjust medication if needed Thank you for this consultation will follow this patient with you Time with Patient: Greater than 30
[2020-05-28 09:30] LABS: African American GFR (CKD) 17.5 (60.0-200.0); Anion Gap 10.6 mmol/L (4.00-12.00); BUN/Creat Ratio 16.22 Ratio (12.00-20.00); Calcium 8.6 mg/dL (8.7-10.3); Carbon Dioxide 21.4 mmol/L (21.6-31.8); Magnesium 1.6 mg/dL (1.5-2.4); Non-African American GFR(CKD) 15.1 (60.0-200.0); Potassium 4.2 mmol/L (3.5-5.5)
--- NOTE | 2020-05-28 15:12 | P.DS ---
Providers Date of admission: 05/26/20 04:17 Expected date of discharge: 05/28/20 Attending physician: Richar Martinez Consults: 05/26/20 14:25 Consult Physician Routine Consulting Provider: Yenni Urrutia Consult Reason/Comments: urinary tract infection Do you want consulting provider notified?: Yes Primary care physician: Orestes Long Hospital Course: Hospital course: This is a patient with a chronic Barrera catheter placed 3 days ago presented with fever and generalized weakness. [place] to have UTI incisions a Barrera catheter. Started IV Zosyn. Cultures were drawn when the patient on nebulized antibiotic. Patient had low-grade fever and some suprapubic pain. Today-feeling well. Eating well. No more fever. Feels overall much improved. Urine culture negative. Discussed with ID. Okay to DC the patient. Discussion and discharge planning more than 35 minutes Consultation: Dr. Urrutia from ID Physical exam: Vitals-99, 64, 20, 151/72, 93% on room air Gen. appearance sitting up in bed awake comfortable Cardiovascular-first seconds are normal. No edema. Lungs-respiratory rate normal, decreased breath sounds Psychiatry-AO - times three. Mood and affect normal INVESTIGATIONS, reviewed in the clinical context: EKG-left bundle-branch block Chest x-ray-no acute process Urine culture negative Final diagnoses: -Acute UTI with cystitis secondary to Barrera catheter -Coronary artery disease with a prior history of stent -GERD -Hyperlipidemia -BPH -Emphysema -Chronic indwelling catheter, for bladder outflow obstruction -Chronic medical debility does use a walker -Chronic nicotine dependence patient cigarette smoker Disposition: [facility] Patient Condition at Discharge: Stable Plan - Discharge Summary Discharge Rx Participant: No New Discharge Prescriptions: New Cefuroxime [Ceftin] 250 mg PO BID #10 tab Continue Nitroglycerin Sl Tabs [Nitrostat] 0.4 mg SUBLINGUAL Q5M PRN PRN Reason: Chest Pain Polyethylene Glycol 3350 [Miralax] 17 gm PO DAILY PRN PRN Reason: Constipation Docusate [Colace] 100 mg PO DAILY PRN PRN Reason: Constipation Midodrine HCl 5 mg PO TID@0900,1300,2100 Cholecalciferol [Vitamin D3 (25 Mcg = 1000 Iu)] 1,000 unit PO HS Metoprolol Succinate (ER) [Toprol XL] 25 mg PO DAILY Magnesium Oxide [Mag-Ox] 400 mg PO DAILY Hydrocortisone [Cortef] 5 mg PO HS Tamsulosin HCl [Flomax] 0.4 mg PO DAILY Hydrocortisone [Cortef] 10 mg PO DAILY Atorvastatin [Lipitor] 40 mg PO HS Escitalopram [Lexapro] 10 mg PO DAILY Clotrimazole Cream [Lotrimin Cream] 1 applic TOPICAL BID@0600,2200 Dextran/Hypromellose/Glycerin [Genteal Tears 0.1%-0.2%-0.3%] 2 drop BOTH EYES TID@0900,1300,2100 Famotidine [Pepcid] 20 mg PO Q48H Lactose-Reduced Food [Ensure Plus] 240 ml PO BID@0900,1700 Sennosides/Docusate Sodium [Senna Plus 8.6-50 mg Tablet] 2 tab PO BID@0900,2100 Discontinued Ciprofloxacin HCl [Cipro] 250 mg PO DAILY Discharge Medication List Atorvastatin [Lipitor] 40 mg PO HS 03/26/20 [History] Cholecalciferol [Vitamin D3 (25 Mcg = 1000 Iu)] 1,000 unit PO HS 03/26/20 [History] Docusate [Colace] 100 mg PO DAILY PRN 03/26/20 [History] Escitalopram [Lexapro] 10 mg PO DAILY 03/26/20 [History] Hydrocortisone [Cortef] 5 mg PO HS 03/26/20 [History] Hydrocortisone [Cortef] 10 mg PO DAILY 03/26/20 [History] Magnesium Oxide [Mag-Ox] 400 mg PO DAILY 03/26/20 [History] Metoprolol Succinate (ER) [Toprol XL] 25 mg PO DAILY 03/26/20 [History] Midodrine HCl 5 mg PO TID@0900,1300,2100 03/26/20 [History] Nitroglycerin Sl Tabs [Nitrostat] 0.4 mg SUBLINGUAL Q5M PRN 03/26/20 [History] Polyethylene Glycol 3350 [Miralax] 17 gm PO DAILY PRN 03/26/20 [History] Tamsulosin HCl [Flomax] 0.4 mg PO DAILY 03/26/20 [History] Clotrimazole Cream [Lotrimin Cream] 1 applic TOPICAL BID@0600,2200 05/26/20 [History] Dextran/Hypromellose/Glycerin [Genteal Tears 0.1%-0.2%-0.3%] 2 drop BOTH EYES TID@0900,1300,2100 05/26/20 [History] Famotidine [Pepcid] 20 mg PO Q48H 05/26/20 [History] Lactose-Reduced Food [Ensure Plus] 240 ml PO BID@0900,1700 05/26/20 [History] Sennosides/Docusate Sodium [Senna Plus 8.6-50 mg Tablet] 2 tab PO BID@0900,2100 05/26/20 [History] Cefuroxime [Ceftin] 250 mg PO BID #10 tab 05/28/20 [Rx] Follow up Appointment(s)/Referral(s): Orestes Long MD [Primary Care Provider] - 1-2 days (At [facility])
--- NOTE | 2020-05-28 15:13 | PN ---
PROGRESS NOTE DATE OF SERVICE: 05/28/2020 REASON FOR FOLLOWUP: Urinary tract infection. INTERVAL HISTORY: The patient is currently afebrile. The patient is breathing comfortably. Denies having any chest pain. No cough. No abdominal pain, no diarrhea. PHYSICAL EXAMINATION: Her blood pressure is 151/72 with a pulse of 54, temperature 99, he is 93% on room air. General description is an elderly male, lying in bed in no distress. RESPIRATORY SYSTEM: Unlabored breathing, clear to auscultation anteriorly. HEART: S1, S2. Regular rate and rhythm. ABDOMEN: Soft, no tenderness. LABS: Hemoglobin is 9.9, white count 9.4, BUN of 16, creatinine 3.7. DIAGNOSTIC IMPRESSION AND PLAN: Patient admitted to hospital with weakness, fever with concern for urinary tract infection in this patient with urine culture on this admission has been negative. Previous culture positive for ESBL. Ultrasound is currently pending. Continue Rocephin, transition to a short course of oral Ceftin. MMODL / IJN: [id number] /
--- NOTE | 2020-05-28 15:57 | US ---
EXAMINATION TYPE: US kidneys/renal and bladder DATE OF EXAM: 05/28/2020 COMPARISON: NONE CLINICAL HISTORY: UTI, elevated creatinine. EXAM MEASUREMENTS: Right Kidney: 9.4 x 4.3 x 4.5 cm Left Kidney: 10.8 x 5.0 x 4.4 cm Right Kidney: No hydronephrosis or masses seen. Trace perinephric fluid. Left Kidney: No hydronephrosis or masses seen. Bladder: Collapsed urinary bladder with Barrera catheter. IMPRESSION: 1. No hydronephrosis bilaterally. 2. Trace right perinephric fluid is nonspecific. 3. Urinary bladder collapsed with Barrera catheter.
[2020-05-28 16:05] VITALS: BP 139/76; PULSE 73; RESP 16; TEMP 98.2
--- NOTE | 2020-05-29 07:43 | CDI ---
Documentation Clarification Form Date: 05/29/2020 06:29:00 AM From: Jen Capone Phone: If you have a question about this query, please contact Kiki Ibrahim Stock Shaper at [phone] between 8am and 5pm. Admit Date: 05/26/2020 04:17:00 AM Patient Name: Dejon Reynolds Visit Number: [id number] Discharge Date: 05/28/2020 04:15:00 PM ATTENTION: The Clinical Documentation Specialists (CDI) and [facility] Coding Staff appreciate your assistance in clarifying documentation. Please respond to the clarification below the line at the bottom and electronically sign. The CDI & [facility] Coding staff will review the response and follow-up if needed. Please note: Queries are made part of the Legal Health Record. If you have any questions, please contact the author of this message via ITS. Dr. Richar Martinez Per H and P and PN 05/27 Sepsis probably secondary to UTI is documented. UTI secondary to chronic Bartholomew Catheter. Diagnosis of sepsis not carried to [facility]. Please clarify if patient had sepsis or was it ruled out. History/Risk Factors: chronic bartholomew cath, history of UTI's WBC 20.8 Lactic acid: 1.1 Vitals signs on admission: 98.7 F, 67 bpm, 16, 115/65, 97% 2 NC Treatment: IV antibiotics ID Consult: Was admitted for IV antibiotics Antibiotics: Zosyn, Rocephin transferred to oral Ceftin In your professional opinion, please clarify if these findings signify one of the following conditions. Did patient have sepsis or was it ruled out. Condition Sepsis ruled out SIRS, without underlying infectious process Sepsis Severe Sepsis Septic Shock Other, please specify Unable to determine SIRS Criteria (2 or more of the following may indicate SIRS): -Temperature < 96.8F (36C) or > 101.0F (38.3C) -Heart Rate > 90 bpm -Respiratory Rate > 20 breaths/min or PaCO2 < 32 mmHg -White Blood Cell Count > 12,000 or < 4,000 cells/mm3 or > 10% bands -Lactate >2.0 mmol/L (>4.0 is equivalent to septic shock) Sepsis ruled out MTDD
== END 2020-05-28 16:15 | DRG 699 ==
LOC: EC 02:58 → 4SSUR 04:17
PROVIDERS: ADMIT Hospitalist; ATTEND Hospitalist
DX: T83.511A Infection and inflammatory reaction due to indwelling urethral catheter, initial encounter (principal); N30.00 Acute cystitis without hematuria; I12.0 Hypertensive chronic kidney disease with stage 5 chronic kidney disease or end stage renal disease; N18.5 Chronic kidney disease, stage 5; N13.8 Other obstructive and reflux uropathy; E78.5 Hyperlipidemia, unspecified; Z71.6 Tobacco abuse counseling; F17.210 Nicotine dependence, cigarettes, uncomplicated; I25.10 Atherosclerotic heart disease of native coronary artery without angina pectoris; I25.2 Old myocardial infarction; Y84.6 Urinary catheterization as the cause of abnormal reaction of the patient, or of later complication, without mention of misadventure at the time of the procedure; Y84.8 Other medical procedures as the cause of abnormal reaction of the patient, or of later complication, without mention of misadventure at the time of the procedure; R79.82 Elevated C-reactive protein (CRP); J43.9 Emphysema, unspecified; K21.9 Gastro-esophageal reflux disease without esophagitis; N40.1 Benign prostatic hyperplasia with lower urinary tract symptoms; Z20.828 Contact with and (suspected) exposure to other viral communicable diseases; Z66 Do not resuscitate; I44.7 Left bundle-branch block, unspecified; Z87.440 Personal history of urinary (tract) infections; Z79.899 Other long term (current) drug therapy; Z82.49 Family history of ischemic heart disease and other diseases of the circulatory system; Z83.3 Family history of diabetes mellitus; Z87.442 Personal history of urinary calculi; Z95.5 Presence of coronary angioplasty implant and graft
CPT/HCPCS: 36415; 71045; 76770; 80048; 80053; 81001; 82728; 83605; 83615; 83735; 85025; 85027; 85610; 85730; 86140; 87040; 87086; 93005; 96361; 96365; 96372; 99285

== ENCOUNTER 2020-07-03 10:58 | Emergency (ER) | payer MEDICARE, OTHER ==
[2020-07-03 11:11] VITALS: RESP 18; TEMP 98.5
[2020-07-03] MEDS ORDERED: SODIUM CHLORIDE 0.9% 500 ML 500 ML IV STA (11:25)
--- NOTE | 2020-07-03 11:27 | ED ---
General Adult HPI - General Chief complaint: Nausea/Vomiting/Diarrhea Stated complaint: COVID Time Seen by Provider: 07/03/20 11:17 Source: patient, EMS, RN notes reviewed Mode of arrival: EMS Limitations: no limitations - History of Present Illness Initial comments: Patient is a pleasant 75-year-old male presenting to the emergency department for positive rotavirus test. Patient states he was having intermittent subjective fevers and diarrhea over the past few days. Patient is starting to feel better today. No diarrhea today. Patient was having diarrhea up to 6 times daily for the past few days. Patient had his temperature checked that was negative however he did have chills and subjectively considered himself to have a fever. Occasional abdominal cramping that has also resolved. No pain. Patient had decreased appetite. - Related Data Home Medications Medication Instructions Recorded Confirmed Docusate [Colace] 100 mg PO BID@0900,209903/26/20 07/03/20 Hydrocortisone [Cortef] 5 mg PO HS@209903/26/20 07/03/20 Hydrocortisone [Cortef] 10 mg PO DAILY@89903/26/20 07/03/20 Magnesium Oxide [Mag-Ox] 400 mg PO DAILY@89903/26/20 07/03/20 Metoprolol Succinate (ER) [Toprol 25 mg PO DAILY@89903/26/20 07/03/20 XL] Nitroglycerin Sl Tabs [Nitrostat] 0.4 mg SUBLINGUAL Q5M PRN 03/26/20 07/03/20 Tamsulosin HCl [Flomax] 0.4 mg PO DAILY@79903/26/20 07/03/20 Dextran/Hypromellose/Glycerin 2 drop BOTH EYES TID@0600,1400,2200 05/26/20 07/03/20 [Genteal Tears 0.1%-0.2%-0.3%] Famotidine [Pepcid] 20 mg PO Q48H 05/26/20 07/03/20 Lactose-Reduced Food [Ensure Plus] 120 ml PO TID@0900,1400,209905/26/20 07/03/20 Sennosides/Docusate Sodium [Senna 2 tab PO BID@0900,209905/26/20 07/03/20 Plus 8.6-50 mg Tablet] Atorvastatin Calcium [Lipitor] 20 mg PO HS@2100 07/03/20 07/03/20 Calcitriol [Rocaltrol] 0.25 mcg PO DAILY 07/03/20 07/03/20 Clopidogrel [Plavix] 75 mg PO DAILY 07/03/20 07/03/20 Nicotine 14Mg/24Hr Patch [Habitrol 1 patch TRANSDERM DAILY@0900 07/03/20 14Mg/24Hr Patch] Sodium Bicarbonate Tab 650 mg PO DAILY@0900 07/03/20 07/03/20 Allergies Allergy/AdvReac Type Severity Reaction Status Date / Time No Known Allergies Allergy Verified 07/03/20 11:45 Review of Systems ROS Statement: Those systems with pertinent positive or pertinent negative responses have been documented in the HPI. ROS Other: All systems not noted in ROS Statement are negative. Constitutional: Reports: as per HPI, chills Eyes: Denies: eye pain ENT: Denies: ear pain Respiratory: Denies: cough Cardiovascular: Denies: chest pain Endocrine: Reports: fatigue Gastrointestinal: Reports: as per HPI, diarrhea. Denies: vomiting Genitourinary: Denies: dysuria Musculoskeletal: Denies: back pain Skin: Denies: rash Past Medical History Past Medical History: Coronary Artery Disease (CAD), Chest Pain / Angina, GERD/Reflux, Hyperlipidemia, Renal Disease Additional Past Medical History / Comment(s): CKD, hydronephrosis, hematuria, obstructive uropathy/reflux/chronic bartholomew, UTI, kidney stones, bacteremia with pyuria, BPH, normocytic anemia, hypomagnesemia, hypocalcemia, hyperkalemia, vitamin D deficiency, caratid artery stenosis/bruits, aortic stenosis, panlobular emphysema, past carbon monoxide poisoning, muscle weakness. History of Any Multi-Drug Resistant Organisms: Acinetobacter (MDRO) Date of last positivie culture/infection: 04/25/20 MDRO Source:: URINE Past Surgical History: Heart Catheterization With Stent Additional Past Surgical History / Comment(s): stent to left kidney Past Anesthesia/Blood Transfusion Reactions: No Reported Reaction Additional Past Anesthesia/Blood Transfusion Reaction / Comment(s): Pt has received blood in past without reaction Date of Last Stent Placement:: 2018 Past Psychological History: Anxiety, Depression Smoking Status: Current every day smoker - Past Family History Father Family Medical History: Diabetes Mellitus, Myocardial Infarction ([place]) Additional Family Medical History / Comment(s): Father "just gave up on life" and at the age of 73 yrs. Mother Family Medical History: Myocardial Infarction ([place]) Additional Family Medical History / Comment(s): Mother is 95 yrs old. General Exam Limitations: no limitations General appearance: alert, in no apparent distress Head exam: Present: normocephalic Eye exam: Present: normal appearance ENT exam: Present: normal exam Neck exam: Present: normal inspection Respiratory exam: Present: normal lung sounds bilaterally Cardiovascular Exam: Present: regular rate, normal rhythm GI/Abdominal exam: Present: soft. Absent: tenderness Extremities exam: Present: normal inspection Neurological exam: Present: alert Psychiatric exam: Present: normal affect, normal mood Skin exam: Present: normal color Course Vital Signs 07/03/20 11:08 Temperature 98.5 F Pulse Rate 67 Respiratory 18 Rate Blood Pressure 126/79 O2 Sat by Pulse 96 Oximetry Medical Decision Making - Medical Decision Making Patient reevaluated and resting comfortably in bed. Patient updated. Patient reportedly a go to a special facility that has arty been arranged. Case discussed with Dr. Martinez, covering for Dr. Long who is in agreement with this. - Lab Data Result diagrams: 07/03/20 11:51 07/03/20 11:51 Lab Results 07/03/20 07/03/20 07/03/20 Range/Units 11:51 11:51 11:51 WBC 6.9 (3.8-10.6) k/uL RBC 3.42 L (4.30-5.90) m/uL Hgb 11.2 L (13.0-17.5) gm/dL Hct 33.8 L (39.0-53.0) % MCV 98.9 D (80.0-100.0) fL MCH 32.8 (25.0-35.0) pg MCHC 33.1 (31.0-37.0) g/dL RDW 13.6 (11.5-15.5) % Plt Count 177 (150-450) k/uL MPV 8.3 Neutrophils % 56 % Lymphocytes % 24 % Monocytes % 14 % Eosinophils % 1 % Basophils % 2 % Neutrophils # 3.9 (1.3-7.7) k/uL Lymphocytes # 1.7 (1.0-4.8) k/uL Monocytes # 0.9 (0-1.0) k/uL Eosinophils # 0.1 (0-0.7) k/uL Basophils # 0.1 (0-0.2) k/uL PT 10.1 (9.0-12.0) sec INR 1.0 (<1.2) APTT 27.6 (22.0-30.0) sec Sodium 135 L (137-145) mmol/L Potassium 5.2 H (3.5-5.1) mmol/L Chloride 109 H (98-107) mmol/L Carbon Dioxide 18 L (22-30) mmol/L Anion Gap 8 mmol/L BUN 76 H (9-20) mg/dL Creatinine 3.81 H (0.66-1.25) mg/dL Est GFR (CKD-EPI)AfAm 17 (>60 ml/min/1.73 sqM) Est GFR (CKD-EPI)NonAf 15 (>60 ml/min/1.73 sqM) Glucose 95 (74-99) mg/dL Plasma Lactic Acid Stanton (0.7-2.0) mmol/L Calcium 8.7 (8.4-10.2) mg/dL Magnesium 1.9 (1.6-2.3) mg/dL Total Bilirubin 0.3 (0.2-1.3) mg/dL AST 36 (17-59) U/L ALT 34 (4-49) U/L Alkaline Phosphatase 68 (38-126) U/L Lactate Dehydrogenase 571 (313-618) U/L C-Reactive Protein 44.3 H (<10.0) mg/L Total Protein 6.1 L (6.3-8.2) g/dL Albumin 3.4 L (3.5-5.0) g/dL 07/03/20 Range/Units 11:51 WBC (3.8-10.6) k/uL RBC (4.30-5.90) m/uL Hgb (13.0-17.5) gm/dL Hct (39.0-53.0) % MCV (80.0-100.0) fL MCH (25.0-35.0) pg MCHC (31.0-37.0) g/dL RDW (11.5-15.5) % Plt Count (150-450) k/uL MPV Neutrophils % % Lymphocytes % % Monocytes % % Eosinophils % % Basophils % % Neutrophils # (1.3-7.7) k/uL Lymphocytes # (1.0-4.8) k/uL Monocytes # (0-1.0) k/uL Eosinophils # (0-0.7) k/uL Basophils # (0-0.2) k/uL PT (9.0-12.0) sec INR (<1.2) APTT (22.0-30.0) sec Sodium (137-145) mmol/L Potassium (3.5-5.1) mmol/L Chloride (98-107) mmol/L Carbon Dioxide (22-30) mmol/L Anion Gap mmol/L BUN (9-20) mg/dL Creatinine (0.66-1.25) mg/dL Est GFR (CKD-EPI)AfAm (>60 ml/min/1.73 sqM) Est GFR (CKD-EPI)NonAf (>60 ml/min/1.73 sqM) Glucose (74-99) mg/dL Plasma Lactic Acid Stanton 0.5 L (0.7-2.0) mmol/L Calcium (8.4-10.2) mg/dL Magnesium (1.6-2.3) mg/dL Total Bilirubin (0.2-1.3) mg/dL AST (17-59) U/L ALT (4-49) U/L Alkaline Phosphatase (38-126) U/L Lactate Dehydrogenase (313-618) U/L C-Reactive Protein (<10.0) mg/L Total Protein (6.3-8.2) g/dL Albumin (3.5-5.0) g/dL - Radiology Data Radiology results: image reviewed (Chest x-ray shows no acute process) Disposition Clinical Impression: Diarrhea due to COVID-19 Disposition: HOME SELF-CARE Condition: Stable Instructions (If sedation given, give patient instructions): Acute Diarrhea (ED) Additional Instructions: Please follow-up with primary care physician in the next couple days for recheck. Return for weakness, fever, pain, dehydration, worsening or changing symptoms or other concerns. Is patient prescribed a controlled substance at d/c from ED?: No Referrals: Orestes Long MD [Primary Care Provider] - 1-2 days Time of Disposition: 13:25
[2020-07-03 12:20] LABS: Basophils # (A) 0.1 k/uL (0-0.2); Basophils % (A) 2 %; Eosinophils # (A) 0.1 k/uL (0-0.7); Eosinophils % (A) 1 %; HCT 33.8 % (39.0-53.0); HGB 11.2 gm/dL (13.0-17.5); Lymphocytes # (A) 1.7 k/uL (1.0-4.8); Lymphocytes % (A) 24 %; MCH 32.8 pg (25.0-35.0); MCHC 33.1 g/dL (31.0-37.0); Mean Platelet Volume 8.3; Monocytes # (A) 0.9 k/uL (0-1.0); Monocytes % (A) 14 %; Neutrophils # (A) 3.9 k/uL (1.3-7.7); Neutrophils % (A) 56 %; Platelet Count 177 k/uL (150-450); RBC 3.42 m/uL (4.30-5.90); RDW 13.6 % (11.5-15.5); WBC 6.9 k/uL (3.8-10.6)
[2020-07-03 12:28] LABS: MCV 98.9 fL (80.0-100.0)
[2020-07-03 12:34] LABS: Albumin 3.4 g/dL (3.5-5.0); C Reactive Protein 44.3 mg/L (<10.0); Calcium 8.7 mg/dL (8.4-10.2); Magnesium 1.9 mg/dL (1.6-2.3); Partial Thromboplastin Time 27.6 sec (22.0-30.0); Potassium 5.2 mmol/L (3.5-5.1); Prothrombin Time 10.1 sec (9.0-12.0); Total Bilirubin 0.3 mg/dL (0.2-1.3); Total Protein 6.1 g/dL (6.3-8.2)
--- NOTE | 2020-07-03 12:42 | XR ---
EXAMINATION TYPE: XR chest 1V portable DATE OF EXAM: 07/03/2020 HISTORY: Shortness of breath. COMPARISON: 05/26/2020 TECHNIQUE: Single view of the chest is submitted. FINDINGS: Demonstrated are scattered senescent parenchymal change. There is no evidence for focal infiltrate. The heart is stable. Hilar and mediastinal structures are within normal limits. Degenerative changes are seen of the dorsal spine. IMPRESSION: 1. Chronic changes without evidence for acute pulmonary disease.
[2020-07-03 17:47] VITALS: BP 132/88; PULSE 87
== END 2020-07-03 17:30 | disposition home or self-care (01) ==
LOC: EC 10:58
DX: U07.1 COVID-19 (principal); A08.39 Other viral enteritis; K21.9 Gastro-esophageal reflux disease without esophagitis; I25.119 Atherosclerotic heart disease of native coronary artery with unspecified angina pectoris; E78.5 Hyperlipidemia, unspecified; N40.0 Benign prostatic hyperplasia without lower urinary tract symptoms; F17.200 Nicotine dependence, unspecified, uncomplicated; Z79.899 Other long term (current) drug therapy; Z79.02 Long term (current) use of antithrombotics/antiplatelets; Z87.442 Personal history of urinary calculi
CPT/HCPCS: 36415; 71045; 80053; 82728; 83605; 83615; 83735; 84145; 85025; 85610; 85730; 86140; 87040; 99284